=== PATIENT | female | born 1995 | race Caucasian/White ===

== ENCOUNTER → 2021-01-31 16:48 | Outpatient (CLI) | payer OTHER, MEDICAID, SELFPAY ==
[2021-01-31 17:40] LABS: Add Manual Diff / Slide Review NO; Basophils Absolute Auto 0 /uL (0-100); Basophils Percent Auto 0.2 % (0-2); Eosinophils Absolute Auto 100 /uL (0-450); Eosinophils Percent Auto 0.7 % (2-4); Hematocrit 34.3 % (36-46); Hemoglobin 11.8 g/dL (12.0-16.0); Lymphocytes Absolute Auto 1700 /uL (1100-4500); Lymphocytes Percent Auto 20.5 % (25-40); Mean Corpuscular HGB Conc 34.3 % (30-36); Mean Corpuscular Hemoglobin 28.5 PG (26-34); Monocytes Absolute Auto 500 /uL (0-900); Neutrophils Absolute Auto 6100 /uL (1500-7000); Neutrophils Percent Auto 72.6 % (50-75); Platelet Count 303 X10^3/uL (150-400); Red Blood Cell Count 4.13 X10^6/uL (4.0-5.2); Red Cell Distribution Width 13.3 % (11.6-14.8); White Blood Cell Count 8.4 X10^3/uL (4.5-11.0)
[2021-01-31 17:58] LABS: Alanine Aminotransferase 15 IU/L (<35); Aspartate Aminotransferase 25 IU/L (14-36); Uric Acid 4.6 mg/dL (2.5-6.2)
[2021-01-31 18:43] LABS: Hepatitis B Surface Antigen NEGATIVE s/c (NEGATIVE); Rubella Antibody IgG 74.3 IU/mL (>15)
[2021-01-31 19:04] LABS: HIV 1 & 2 Ab/Ag 4th Gen Combo NEGATIVE (NEGATIVE); Hep C Virus Ab w/Reflex Quant NEGATIVE s/c (NEGATIVE)
[2021-01-31 20:25] LABS: Appearance Urine UA CLEAR; Bilirubin Urine UA NEGATIVE (NEGATIVE); Color Urine UA YELLOW; Glucose Urine UA NEGATIVE (Negative); Ketones Urine UA NEGATIVE (NEGATIVE); Leukocyte Esterase Urine UA NEGATIVE (NEGATIVE); Nitrite Urine UA NEGATIVE (Negative); Occult Blood Urine UA NEGATIVE (Negative); Protein Urine UA NEGATIVE (Negative); Urobilinogen Urine UA 0.2 E.U./dL (0.2)
[2021-02-01 06:11] LABS: HSV 2 IGG AB < 0.91 index (0.00-0.90)
[2021-02-01 08:45] LABS: RPR Screen Non Reactive (Non Reactive)
[2021-02-01 10:46] LABS: Varicella IgG Antibody 1387 index (Immune >165)
== END ==
PROVIDERS: Referring Provider Family Medicine; Visit Provider Family Medicine
DX: Z34.83 Encounter for supervision of other normal pregnancy, third trimester (principal); Z3A.35 35 weeks gestation of pregnancy
CPT/HCPCS: 36415; 80055; 81003; 84450; 84460; 84550; 86695; 86696; 86787; 86803; 86850; 86900; 86901; 87086; 87389

== ENCOUNTER → 2021-02-05 10:48 | Outpatient (CLI) | payer OTHER, MEDICAID, SELFPAY ==
--- NOTE | 2021-02-05 10:49 | DI.US.S_ITS ---
PROCEDURE: US OB BIOPHYSICAL PROFILE INDICATIONS: SOPHIA AND BIOPHYSICAL PROFILE OUTSIDE/PRIOR DATING DATA: Estimated date of delivery (HERMANN) from first dating scan: 03/06/2021 . TECHNIQUE: Real-time scanning was performed of the fetus, with image documentation and biometric measurements. Biophysical profile was also obtained. Endovaginal scanning: No COMPARISON: None. FINDINGS: General: A single living intrauterine gestation is present. Presentation: Vertex. Placenta: Placental position is anterior . Inferior margin of the placenta is not definitively identified. Amniotic fluid index: 14.6 cm cm, normal range is 5-24 cm. heart rate: 152 beats per minute. Maternal cervical canal: Not well seen. Composite gestational age from prior examination: 35 weeks 6 days by provided HERMANN. Biophysical profile: Tone: 2 points. Movement: 2 points. Respiration: 2 points. Largest pocket of fluid: 2 points. Impression: 1. Single living IUP with age estimated 35 weeks 6 days by the provided HERMANN of 03/06/2021. No measurements were performed on today's exam. 2. Normal biophysical profile score of 8/8 possible points. Dictated by: Donell MENG Interpreted: Virgie Corbin MD on 02/05/2021 at 16:24 Approved by: Virgie Corbin M.D. on 02/05/2021 at 17:14
== END ==
PROVIDERS: PCP Family Medicine; Referring Provider Family Medicine; Visit Provider Family Medicine
DX: O16.3 Unspecified maternal hypertension, third trimester (principal); Z3A.35 35 weeks gestation of pregnancy
CPT/HCPCS: 76819

== ENCOUNTER → 2021-02-14 11:54 | Outpatient (CLI) | payer OTHER, MEDICAID, SELFPAY ==
[2021-02-15 11:21] LABS: Strep Grp B PCR NEG for Grp B Strep
== END ==
PROVIDERS: PCP Family Medicine; Visit Provider Family Medicine
DX: Z3A.36 36 weeks gestation of pregnancy (principal)
CPT/HCPCS: 87653

== ENCOUNTER 2021-02-27 07:21 | Inpatient (IN) | payer OTHER, MEDICAID, SELFPAY ==
[2021-02-27] MEDS: LACTATED RINGERS 1,000 ML 100 ML IV ×2 (07:50→22:34)
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
[2021-02-27 08:09] LABS: Add Manual Diff / Slide Review NO; Basophils Absolute Auto 100 /uL (0-100); Basophils Percent Auto 0.8 % (0-2); Eosinophils Absolute Auto 0 /uL (0-450); Eosinophils Percent Auto 0.2 % (2-4); Hematocrit 35.5 % (36-46); Hemoglobin 11.8 g/dL (12.0-16.0); Lymphocytes Absolute Auto 1900 /uL (1100-4500); Lymphocytes Percent Auto 14.2 % (25-40); Mean Corpuscular HGB Conc 33.3 % (30-36); Mean Corpuscular Hemoglobin 27.2 PG (26-34); Mean Corpuscular Volume 81.8 fL (80-100); Monocytes Absolute Auto 500 /uL (0-900); Monocytes Percent Auto 3.5 % (3-14); Neutrophils Absolute Auto 11100 /uL (1500-7000); Neutrophils Percent Auto 81.3 % (50-75); Platelet Count 315 X10^3/uL (150-400); Red Blood Cell Count 4.34 X10^6/uL (4.0-5.2); Red Cell Distribution Width 13.7 % (11.6-14.8); White Blood Cell Count 13.7 X10^3/uL (4.5-11.0)
[2021-02-27 09:14] LABS: COVID19 - ADMIT (NP swab/PCR) Negative (Negative)
--- NOTE | 2021-02-27 09:58 | PM.OBPNLAB ---
Date/Time Date Patient Seen: 02/27/21 Time Patient Seen: 09:58 Pain Control Pain control: epidural Comments: difficulty with some mild discomfot Epidural adjusted. Pelvic Exam Dilation (cm): 10 Effacement (%): 100 station: 0 Amniotic membrane status: Ruptured Comments: mec mild Contractions Contractions on admission: regular Monitor mode: External Contraction pattern: Regular Status status: Category l Assessment and Plan Assessment: active labor Plan: continuous present management Comments: start pushing epidural adjustments needed pain with contractions BP mild elevations.
[2021-02-27 10:24] VITALS: BP 130/64
[2021-02-27] MEDS: OXYTOCIN PREMIX 30 UNIT/500 ML PLAST..BAG 200 UNIT IV (11:42)
[2021-02-27] MEDS: METHYLERGONOVINE 0.2 MG/ML VIAL IM (12:48)
[2021-02-27] MEDS: miSOPROStoL 200 MCG TABLET 800 MCG PR (12:51)
[2021-02-27] MEDS: ONDANSETRON 4 MG/2 ML INJ IV (13:47)
[2021-02-27] MEDS: IBUPROFEN 600 MG TABLET PO (14:35)
--- NOTE | 2021-02-27 16:18 | PM.PROC.1 ---
Procedures Date/Time Date of procedure: 02/27/21 Time of procedure: 01:30 General Procedure description: Vaginal delivery Stage I of labor approximately 6 hours. Patient presented to Labor and delivery floor avni uncomfortable and leaking fluid. Symptoms started at 4:30 a.m. in the morning. She was found to be avni regularly AmniSure positive heart tones were reassuring she was admitted to the labor and delivery floor she was requesting an epidural which was provided. She had some difficulty with getting comfortable after the epidural and required a couple of position changes of the epidural catheter and boluses and at that point patient had good comfort. On admission to the hospital she has her cervical exam showed her to be complete-1 station. After her epidural in placement of a Ernee catheter labs her membranes were ruptured which showed meconium staining moderate amount. At that point to after comfortable of labor patient was able to labor down to 0+ 1 station and pushing began. During stage I of labor she had heart tones which were reassuring but mild elevation of her blood pressure. Stage II of labor approximately an hour and a half. Patient with to deliver viable female infant in the occiput anterior position. The delivery of the head there was no nuchal cord. Patient was placed on the mother's abdomen. Had spontaneous vigorous cry baby's Apgars were 8 and 9. After delayed cord clamp clamping was done. In the baby was doing well. Patient had Pitocin that was given through the IV bag at 30 g. after delivery of the baby baby was doing well and mom was resting comfortably during stage II of labor patient had category 1 category 2 heart tracing Stage III of labor. Debris of intact placenta approximately 5 minutes afterwards. The patient then had a repair of a for right-sided first-degree labial tear and the right-sided air at the perineal first-degree tear. Which were successfully repaired afterwards she was still bleeding so she was given some side attack and Methergine and her uterus and fundus was quite firm. With this still bleeding patient had further inspection of the vagina was found does have Otilio deep vaginal laceration which was then closed in the usual fashion with a chromic stitch. Afterwards bleeding was well controlled. Afterwards mom and baby were doing well. Estimated blood loss was 700 cc.
[2021-02-27] MEDS: METHYLERGONOVINE 0.2 MG TABLET PO (17:45)
[2021-02-27] MEDS: TRANEXAMIC ACID 1,000 MG in SODIUM CHLORIDE 0.9% 100 ML 200 ML IV (18:30)
[2021-02-27] MEDS: MORPHINE 4 MG/ML INJ IV ×2 (18:40→21:04)
[2021-02-27 18:47] LABS: Add Manual Diff / Slide Review NO; Basophils Absolute Auto 0 /uL (0-100); Basophils Percent Auto 0.1 % (0-2); Eosinophils Absolute Auto 0 /uL (0-450); Hematocrit 25.9 % (36-46); Hemoglobin 8.5 g/dL (12.0-16.0); Lymphocytes Absolute Auto 1200 /uL (1100-4500); Lymphocytes Percent Auto 7.2 % (25-40); Monocytes Absolute Auto 800 /uL (0-900); Monocytes Percent Auto 4.6 % (3-14); Neutrophils Absolute Auto 14500 /uL (1500-7000); Neutrophils Percent Auto 88.1 % (50-75); Platelet Count 271 X10^3/uL (150-400); Red Blood Cell Count 3.16 X10^6/uL (4.0-5.2); Red Cell Distribution Width 13.7 % (11.6-14.8); White Blood Cell Count 16.4 X10^3/uL (4.5-11.0)
[2021-02-27 18:49] LABS: PTT Partial Thromboplastin Tim 24 SECONDS (26.4-36.2)
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
--- NOTE | 2021-02-27 19:16 | P.OP.PRE_ITS ---
Pre-operative Note COVID-19 COVID-19 status: Negative Interval Note History & Physical reviewed/Exam performed by Physician: Yes Changes to H&P: Yes H&P completed within 30 days and has changed as indicated here:: patient with po stpartum hemorrhage of unclear etiology
[2021-02-27] MEDS: CEFAZOLIN 1 GM VIAL 2 GM IV (19:35)
--- NOTE | 2021-02-27 19:51 | SUR.OPER ---
Lithotomy on padded OR bed, head on pillow, arms secured on padded arm boards at <90 degrees abduction. Legs secured in padded yellow fins stirrups.
--- NOTE | 2021-02-27 20:07 | SUR.OPER ---
uterine tamponade balloon filled with 360ml saline
[2021-02-27 20:25] VITALS: BP 115/47; PULSE 89; RESP 14; TEMP 37; O2SAT 98
--- NOTE | 2021-02-27 20:26 | PM.OP.1 ---
Operative Date/Time/Diagnoses Date of procedure: 02/27/21 Time of procedure: 20:26 Pre-op diagnosis: hemorrhage Post-op diagnosis: same Procedure & Clinicians Procedure: Exam under anesthesia, uterine curettage, placement of Bakri balloon, repair of prior repaired perineal tear Same procedure as scheduled: Yes Indications: hemorrhage Surgeon: Marisela Mullins Click Yes if Unassisted: Yes Anesthesia Type: General Operative Notes Findings: No retained products of conception, no cervical or vaginal tears, hematoma of the perineal body Closure Type: primary Specimen(s): none sent Applied: catheter (Renee catheter) and other (Uterine tamponade balloon) Estimated Blood Loss (mL): 100 (prior to coming to the operating room approximally 2000 cc blood) Blood products transfused: packed red blood cells (1st unit begun in the OR, 2nd unit pending) Procedure in detail: Patient was brought to the operating room where she underwent general anesthesia. [facility] and prepped and draped in the usual sterile fashion. A Renee catheter was placed. A check system was reviewed with the staff in the room prior to beginning of the case. 2 g of Ancef were given. Lateral retractors were placed in the vagina and the entire vaginal wall and cervix were examined and found to be intact. Ring forceps were placed on the anterior lip and posterior lip of the cervix. The large and uterine curette was placed into the uterus and careful curettage performed. There was no obvious retained products of conception. The uterine tamponade balloon was placed inside the uterus and inflated with 360 cc of saline. Rectal exam was performed and there was will a swelling on the right side of the perineal body suggestive of a hematoma but was not growing so decision was made to leave it alone. The prior repair of her second-degree perineal laceration and right labial tear were reinforced with 3 0 chromic suture in 2 layers. Patient went to recovery room in stable condition. Counts of instruments and sponges were correct. Complications: none Post-operative Condition: stable Disposition: other ( Center) Plan for aftercare: Monitor for bleeding. Uterine tamponade balloon will be slowly decreased tomorrow prior to removal.
[2021-02-27 20:30] VITALS: BP 109/62; PULSE 87; RESP 15; O2SAT 98
[2021-02-27 20:35] VITALS: BP 115/77; PULSE 92; RESP 16; O2SAT 97
[2021-02-27 20:40] VITALS: BP 127/81; PULSE 85; RESP 16; TEMP 37.2; O2SAT 100
--- NOTE | 2021-02-27 20:47 | SUR.PHASEI ---
Blood was started at 1944 in OR by Yahir Serra RN. Unit was not released by lab so unable to scan at time. Scanned afterwards but start time for unit was 1944.
[2021-02-27 22:15] VITALS: BP 123/75; PULSE 84; RESP 22; TEMP 36.9
[2021-02-27] MEDS: OXYTOCIN PREMIX 30 UNIT/500 ML PLAST..BAG 75 UNIT IV (22:32)
--- NOTE | 2021-02-28 01:52 | TAR.TRANSNT ---
Times are off on infusion of PRBC due to problems scanning original bag in the OR. The final unit of PRBC was finished at 0148. Ending vitals were as follows. BP 126/65 HR 74 Temp 98.6 O2 sat 100% Resp. 18. I was unable to chart the end of the first transfusion.
[2021-02-28] MEDS: CEFAZOLIN 1 GM VIAL IV ×3 (03:55→20:16)
[2021-02-28] MEDS: IBUPROFEN 600 MG TABLET PO ×2 (04:03→14:52)
[2021-02-28 06:34] LABS: Add Manual Diff / Slide Review NO; Basophils Absolute Auto 0 /uL (0-100); Basophils Percent Auto 0.2 % (0-2); Eosinophils Absolute Auto 0 /uL (0-450); Eosinophils Percent Auto 0.2 % (2-4); Hemoglobin 7.7 g/dL (12.0-16.0); Lymphocytes Absolute Auto 1500 /uL (1100-4500); Lymphocytes Percent Auto 11.9 % (25-40); Mean Corpuscular HGB Conc 33.7 % (30-36); Mean Corpuscular Hemoglobin 28.4 PG (26-34); Mean Corpuscular Volume 84.3 fL (80-100); Monocytes Absolute Auto 700 /uL (0-900); Monocytes Percent Auto 5.3 % (3-14); Neutrophils Absolute Auto 10600 /uL (1500-7000); Neutrophils Percent Auto 82.4 % (50-75); Platelet Count 167 X10^3/uL (150-400); Red Blood Cell Count 2.73 X10^6/uL (4.0-5.2); Red Cell Distribution Width 14.1 % (11.6-14.8); White Blood Cell Count 12.9 X10^3/uL (4.5-11.0)
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
[2021-02-28] MEDS: OXYCODONE IR 5 MG TABLET PO ×2 (08:00→14:52)
[2021-02-28] MEDS: ACETAMINOPHEN 325 MG TABLET 650 MG PO ×2 (13:25→18:55)
[2021-03-01] MEDS: ACETAMINOPHEN 325 MG TABLET 650 MG PO ×3 (01:08→16:54)
[2021-03-01] MEDS: IBUPROFEN 600 MG TABLET PO ×3 (01:09→16:54)
[2021-03-01] MEDS: CEFAZOLIN 1 GM VIAL IV ×3 (03:54→20:10)
[2021-03-01 06:30] LABS: Add Manual Diff / Slide Review NO; Basophils Absolute Auto 0 /uL (0-100); Basophils Percent Auto 0.3 % (0-2); Eosinophils Absolute Auto 200 /uL (0-450); Eosinophils Percent Auto 2.2 % (2-4); Lymphocytes Absolute Auto 2000 /uL (1100-4500); Lymphocytes Percent Auto 23.4 % (25-40); Mean Corpuscular HGB Conc 33.2 % (30-36); Mean Corpuscular Hemoglobin 28.4 PG (26-34); Mean Corpuscular Volume 85.6 fL (80-100); Monocytes Absolute Auto 500 /uL (0-900); Monocytes Percent Auto 5.5 % (3-14); Neutrophils Absolute Auto 6000 /uL (1500-7000); Neutrophils Percent Auto 68.6 % (50-75); Platelet Count 199 X10^3/uL (150-400); Red Blood Cell Count 2.42 X10^6/uL (4.0-5.2); Red Cell Distribution Width 14.4 % (11.6-14.8); White Blood Cell Count 8.7 X10^3/uL (4.5-11.0)
[2021-03-01 06:33] LABS: Hemoglobin 6.9 g/dL (12.0-16.0)
[2021-03-01 06:34] LABS: Hematocrit 20.7 % (36-46)
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
[2021-03-01] MEDS: DERMOPLAST SPRAY 20% 60 ML 1 SPRAY TOP (08:37)
[2021-03-01 08:38] VITALS: TEMP 36.9
[2021-03-01] MEDS: DOCUSATE 250 MG CAPSULE PO (08:38)
[2021-03-01] MEDS: FERROUS SULFATE 325 MG TABLET PO ×2 (08:38→20:10)
[2021-03-01 16:54] VITALS: TEMP 36.9
[2021-03-01] MEDS: LANOLIN OINT 7 GM 1 APPLIC TOP (21:48)
[2021-03-02] MEDS: CEFAZOLIN 1 GM VIAL IV (03:53)
[2021-03-02] MEDS: ACETAMINOPHEN 325 MG TABLET 650 MG PO ×2 (04:15→09:40)
[2021-03-02] MEDS: IBUPROFEN 600 MG TABLET PO ×2 (04:15→09:42)
--- NOTE | 2021-03-02 06:29 | P.DS_ITS ---
Discharge Providers Provider Date of admission: 02/27/21 07:21 Discharge Date: 03/02/21 Primary care physician: Florencio Mcmullen MD Consults: 02/27/21 21:34 Consult to Magnetic Resonance Imaging Coordinator Routine Comment: 02/28/21 13:18 Consult to Magnetic Resonance Imaging Coordinator Routine Comment: Discharge provider: Florencio Mcmullen MD Summary Hospital Course Date Patient Seen: 03/02/21 Time Patient Seen: 06:29 Diagnoses: Vaginal delivery of viable female infant hemorrhage with placement of uterine tamponade balloon Acute blood loss anemia requiring 2 units of packed red blood cells Peripartum Data Delivery Method: Natural Vaginal Laceration Description: Perineal - 1st Degree and Vaginal - 1st Degree Status at Discharge Functional status at discharge: independent ambulation Time Spent with Patient Time attestation: Total time spent providing and/or coordinating discharge servi ezra: Time spent: Less than 30 minutes Objective Labs Result Diagrams: 03/01/21 06:14 Labs: Laboratory Results - last 24 hr 03/01/21 06:14 WBC 8.7 RBC 2.42 L Hgb 6.9 L* Hct 20.7 L* MCV 85.6 MCH 28.4 MCHC 33.2 RDW 14.4 Plt Count 199 Neut % (Auto) 68.6 Lymph % (Auto) 23.4 L [place] % (Auto) 5.5 Eos % (Auto) 2.2 Baso % (Auto) 0.3 Neut # (Auto) 6000 Lymph # (Auto) 2000 [place] # (Auto) 500 Eos # (Auto) 200 Baso # (Auto) 0 Exam Vital Signs (past 8 hours): Oxygen Delivery Method Room Air Discharge Plan Discharge Plan Patient Disposition: Home Discharge orders & Medications Prescriptions: New docusate sodium [Colace] 100 mg capsule 100 mg PO DAILY Qty: 20 RF: 0 ferrous sulfate 324 mg (65 mg iron) tablet,delayed release (DR/EC) 324 mg PO DAILY Qty: 30 RF: 0 ibuprofen 600 mg tablet 600 mg PO Q8H PRN (Reason: pain) Qty: 30 RF: 0 Discontinued omeprazole 20 mg capsule,delayed release(DR/EC) 20 mg PO DAILY Qty: 30 RF: 1 Follow up/Referrals: Florencio Mcmullen MD [Primary Care Provider] - Discharge Health Status Multidrug resistant organism: No MDRO Visit Report/Discharge Packet Visit Report Forms: Patient Portal/API, Stroke Signs & Symptoms Discharge Data Primary Care Provider: Florencio Mcmullen
[2021-03-02 08:23] LABS: Add Manual Diff / Slide Review NO; Basophils Absolute Auto 0 /uL (0-100); Basophils Percent Auto 0.6 % (0-2); Eosinophils Absolute Auto 200 /uL (0-450); Eosinophils Percent Auto 3.2 % (2-4); Lymphocytes Absolute Auto 1900 /uL (1100-4500); Lymphocytes Percent Auto 27.1 % (25-40); Mean Corpuscular HGB Conc 33.8 % (30-36); Mean Corpuscular Hemoglobin 28.8 PG (26-34); Mean Corpuscular Volume 85.1 fL (80-100); Monocytes Absolute Auto 400 /uL (0-900); Monocytes Percent Auto 5.4 % (3-14); Neutrophils Absolute Auto 4600 /uL (1500-7000); Neutrophils Percent Auto 63.7 % (50-75); Platelet Count 241 X10^3/uL (150-400); Red Blood Cell Count 2.44 X10^6/uL (4.0-5.2); Red Cell Distribution Width 14.3 % (11.6-14.8); White Blood Cell Count 7.2 X10^3/uL (4.5-11.0)
[2021-03-02 08:26] LABS: Hematocrit 20.8 % (36-46)
[2021-03-02] MEDS: FERROUS SULFATE 325 MG TABLET PO (09:41)
[2021-03-02] MEDS: DOCUSATE 250 MG CAPSULE PO (09:42)
[2021-03-02 09:45] VITALS: BP 122/78; PULSE 82; RESP 18; TEMP 36.7
== END 2021-03-02 12:05 | disposition home or self-care (01) | DRG 541 ==
PROVIDERS: Specialist; Admitting Provider Family Medicine; PCP Family Medicine; Referring Provider Family Medicine; Visit Provider Family Medicine
PROC: 0HQ9XZZ Repair Perineum Skin, External Approach (ICD-10-PCS; CPT 58120; principal; 2021-02-27 19:45)
DX: O13.4 Gestational [pregnancy-induced] hypertension without significant proteinuria, complicating childbirth (principal); O99.02 Anemia complicating childbirth; O72.2 Delayed and secondary postpartum hemorrhage; D62 Acute posthemorrhagic anemia; Z3A.39 39 weeks gestation of pregnancy; Z37.0 Single live birth; O70.0 First degree perineal laceration during delivery; O77.0 Labor and delivery complicated by meconium in amniotic fluid; Z20.822 Contact with and (suspected) exposure to COVID-19
CPT/HCPCS: 01967; 36415; 36430; 59050; 59160; 59409; 59899; 84112; 85025; 85610; 85730; 86850; 86900; 86901; 87635; C9803; P9016; G0379; J0330; J0690; J2210; J2270; J2405; J2590; J2704; J3010; S0191